=== PATIENT | female | born 1975 | race Caucasian/White ===

== ENCOUNTER 2018-10-25 21:44 | Emergency (ER) | payer OTHER, SELFPAY ==
[2018-10-25 22:23] VITALS: BP 131/82; PULSE 112; RESP 18; TEMP 38.7; O2SAT 96; BMI 73.4
--- NOTE | 2018-10-25 23:07 | ED.NAVMDI ---
HPI - Nausea/Vomiting/Diarrhea General Chief complaint: Nausea/Vomiting/Diarrhea Stated complaint: VOMITING, DIARRHEA Time Seen by Provider: 10/25/18 22:14 Source: patient Mode of arrival: ambulatory Limitations: no limitations History of Present Illness HPI Narrative: 43-year-old female here for evaluation of nausea vomiting and diarrhea. States has been going on for the past 24 hr. Has not done anything for it. Is having right-sided back pain. States she cannot keep anything down because the nausea. No blood in the diarrhea. No recent antibiotics for no recent travel. No fevers. 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) Integumentary/Breasts Denies rash Neurologic Denies behavioral changes Psychiatric Denies behavioral changes Hematologic/Lymphatic Denies easy bleeding and Denies easy bruising [facility] Medical History Fibromyalgia (Acute) Social History Smoking Status: Current every day smoker Social History Smoking Status: Current every day smoker Exam Initial Vital Signs Initial Vital Signs: Vital Signs Temperature 101.7 F H 10/25/18 22:23 Pulse Rate 112 H 10/25/18 22:23 Respiratory Rate 18 10/25/18 22:23 Blood Pressure 131/82 10/25/18 22:23 Pulse Oximetry 96 10/25/18 22:23 Const General: cooperative, comfortable, well developed, well groomed and No acute distress Orientation: alert, awake and oriented x3 Resp Effort & Inspection: normal respiratory effort Cardio Rate: regular rate Rhythm: regular rhythm GI Inspection: non-distended Palpation: soft, No firm and No tender Back/Spine/Pelvis Back: CVA tenderness right Skin Rashes: no rashes Neuro General: alert, awake and oriented x3 Extrem General: normal to inspection and capillary refill normal Psych Appearance: grossly normal and well kempt Course Orders Ordered: ED Orders 10/25/18 23:25 Complete Blood Count AUTO DIFF Stat Comprehensive Metabolic Panel Stat Lipase Stat 10/25/18 23:30 Urine Microscopic Stat Discontinued Medications Sodium Chloride (Normal Saline 0.9%) 1,000 mls @ 1,000 mls/hr IV BOLUS ONE Stop: 10/26/18 00:06 Last Infusion: 10/26/18 01:30 Dose: 0 mls/hr Admin: 10/25/18 23:50 Dose: 1,000 mls/hr Ketorolac Tromethamine (Toradol) 30 mg IV NOW ONE Stop: 10/25/18 23:45 Last Admin: 10/25/18 23:46 Dose: 30 mg Ondansetron HCl (Zofran) 4 mg IV NOW ONE Stop: 10/25/18 23:08 Last Admin: 10/25/18 23:46 Dose: 4 mg Ondansetron HCl (Zofran Odt Prepack) 1 bottle MISC SEEINSTR ONE Stop: 10/26/18 01:14 Last Admin: 10/26/18 01:36 Dose: 1 bottle Vital Signs - 8 hr 10/25/18 22:23 10/25/18 23:46 10/26/18 00:11 Temperature 101.7 F H 102 F H Pulse Rate 112 H 108 H Respiratory Rate 18 15 Blood Pressure 131/82 Blood Pressure [Left Arm] 124/76 Pulse Oximetry 96 98 10/26/18 01:37 Temperature 99.9 F H Pulse Rate 85 Respiratory Rate 18 Blood Pressure 119/55 L Blood Pressure [Left Arm] Pulse Oximetry 100 MDM - Nausea/Vomiting/Diarrhea Lab Data Attestation: I reviewed the patient's lab results. Result diagrams: 10/25/18 23:25 10/25/18 23:25 Lab Results 10/25/18 10/25/18 10/25/18 Range/Units 23:25 23:25 23:30 WBC 6.0 (4.5-11.0) X10^3/uL RBC 4.78 (4.0-5.2) X10^6/uL Hgb 12.1 (12.0-16.0) g/dL Hct 37.3 (36-46) % MCV 78.1 L (80-100) fL MCH 25.3 L (26-34) PG MCHC 32.4 (30-36) % RDW 15.8 H (11.6-14.8) % Plt Count 281 (150-400) X10^3/uL Neut % (Auto) 86.0 H (50-75) % Lymph % (Auto) 8.8 L (25-40) % [place] % (Auto) 4.6 (3-14) % Eos % (Auto) 0.4 L (2-4) % Baso % (Auto) 0.2 (0-2) % Neut # (Auto) 5200 (2726-3672) /uL Lymph # (Auto) 500 L (1539-1101) /uL [place] # (Auto) 300 (0-900) /uL Eos # (Auto) 0 (0-450) /uL Baso # (Auto) 0 (0-100) /uL Sodium 139 (137-145) mmol/L Potassium 3.6 (3.4-5.1) mmol/L Chloride 106 (98-107) mmol/L Carbon Dioxide 22 (22-32) mmol/L BUN 15 (7-17) mg/dL Creatinine 0.80 (0.52-1.04) mg/dL Estimated GFR > 60.0 (>60) mL/min BUN/Creatinine Ratio 18.8 (6-22) Glucose 101 H (70-100) mg/dL Calcium 9.1 (8.4-10.2) mg/dL Total Bilirubin 0.2 (0.2-1.3) mg/dL AST 22 (14-36) IU/L ALT 25 (9-52) IU/L Alkaline Phosphatase 65 (38-126) U/L Total Protein 7.4 (6.3-8.2) g/dL Albumin 4.2 (3.5-5.0) g/dL Globulin 3.2 (1.7-4.1) g/dL Albumin/Globulin Ratio 1.3 (1.0-2.8) Lipase 100 (23-300) U/L Urine RBC None seen (0-5/HPF) Urine WBC None seen (0-5/HPF) Ur Squamous Epith Cells 1-5 /hpf Urine Bacteria Few (2-10) H (None) Ur Culture Indicated? Cult not indicated Micro UA Comment . Urine Dip Bedside Urine Glucose Negative Bedside Urine Bilirubin - Negative Bedside Urine Ketone + 15 Urine Specific [place] 1.030 Bedside Urine Occult Blood - Negative Bedside Urine pH 5.5 Bedside Urine Protein +/- 15 Bedside Urine Urobilinogen - Negative Bedside Urine Nitrite - Negative Bedside Urine Leukocytes - Negative Esterase MDM Narrative Medical decision making narrative: Nontoxic appearing. Labs unremarkable. Urine unremarkable. No blood in the urine. Low suspicion for kidney stone. Low suspicion for pyelonephritis. I do suspect that the fever is secondary to the GI infection. She was given Zofran. Was able to tolerate a small amount of fluids afterwards. Will hold on any CT for now. No indication for antibiotics. Was given fluids. Instructed on the importance of taking small amounts of fluid over longer periods of time. Patient expressed understanding and agreement with plan. Discharge Plan Departure Patient Disposition: Home Clinical Impression: Nausea & vomiting Qualifiers: Vomiting type: unspecified Vomiting Intractability: non-intractable Qualified Code(s): R11.2 - Nausea with vomiting, unspecified Diarrhea Qualifiers: Diarrhea type: unspecified type Qualified Code(s): R19.7 - Diarrhea, unspecified Discharge Date/Time: 10/26/18 01:41 Interventions: ED Discharge Assessment Last Done: 10/26/18 01:37 Instructions: Diarrhea, DI for Nausea -- Adult, DI for Vomiting -- Adult Activity Restrictions/Additional Instructions: Recommend you take the nausea medication as directed. Take small amounts of fluid over longer periods of time. Contact your primary care doctor for a follow-up. Prescriptions: New ondansetron HCl [Zofran] 4 mg tablet 4 mg PO Q6-8H PRN (Reason: nausea and vomiting) Qty: 14 RF: 0 Referrals: Jose E Brice [Primary Care Provider] - Stand Alone Forms: Work Release Note
[2018-10-25 23:46] VITALS: TEMP 38.8
[2018-10-25] MEDS: KETOROLAC 60 MG/2 ML VIAL 30 MG IV (23:46)
[2018-10-25] MEDS: ONDANSETRON 4 MG/2 ML INJ IV (23:46)
[2018-10-25] MEDS: SODIUM CHLORIDE 0.9% 1,000 ML 1000 ML IV (23:50)
[2018-10-25 23:51] LABS: Add Manual Diff / Slide Review NO; Basophils Absolute Auto 0 /uL (0-100); Basophils Percent Auto 0.2 % (0-2); Eosinophils Absolute Auto 0 /uL (0-450); Eosinophils Percent Auto 0.4 % (2-4); Hematocrit 37.3 % (36-46); Hemoglobin 12.1 g/dL (12.0-16.0); Lymphocytes Absolute Auto 500 /uL (1100-4500); Lymphocytes Percent Auto 8.8 % (25-40); Mean Corpuscular HGB Conc 32.4 % (30-36); Mean Corpuscular Hemoglobin 25.3 PG (26-34); Mean Corpuscular Volume 78.1 fL (80-100); Monocytes Absolute Auto 300 /uL (0-900); Monocytes Percent Auto 4.6 % (3-14); Neutrophils Absolute Auto 5200 /uL (1500-7000); Platelet Count 281 X10^3/uL (150-400); Red Blood Cell Count 4.78 X10^6/uL (4.0-5.2); Red Cell Distribution Width 15.8 % (11.6-14.8)
[2018-10-25 23:57] LABS: Alanine Aminotransferase 25 IU/L (9-52); Albumin 4.2 g/dL (3.5-5.0); Albumin Globulin Ratio 1.3 (1.0-2.8); Alkaline Phosphatase 65 U/L (38-126); Aspartate Aminotransferase 22 IU/L (14-36); BUN Creatinine Ratio 18.8 (6-22); Bilirubin Total 0.2 mg/dL (0.2-1.3); Blood Urea Nitrogen 15 mg/dL (7-17); Calcium 9.1 mg/dL (8.4-10.2); Carbon Dioxide 22 mmol/L (22-32); Chloride 106 mmol/L (98-107); Estimated Glomerular Filt Rate > 60.0 mL/min (>60); Globulin 3.2 g/dL (1.7-4.1); Glucose 101 mg/dL (70-100); HEMOLYSIS < 15 (0-50); Lipase 100 U/L (23-300); Potassium 3.6 mmol/L (3.4-5.1); Sodium 139 mmol/L (137-145); Total Protein 7.4 g/dL (6.3-8.2)
[2018-10-25 23:58] LABS: RBC Urine None Seen (0-5/HPF); WBC Urine None Seen (0-5/HPF)
[2018-10-26] LABS: Squamous Epithelial Cell Urine 1-5 /HPF
[2018-10-26 00:01] LABS: Bacteria Urine Few (2-10); Culture Indicated Urine Cult Not Indicated
[2018-10-26 00:11] VITALS: BP 124/76; PULSE 108; RESP 15; O2SAT 98
[2018-10-26] MEDS: ONDANSETRON 4 MG ODT PREPACK 1 BOTTLE MISC (01:36)
[2018-10-26 01:37] VITALS: BP 119/55; PULSE 85; RESP 18; TEMP 37.7; O2SAT 100
== END 2018-10-26 01:41 | disposition home or self-care (01) ==
PROVIDERS: Emergency Provider Emergency Medicine; Family Provider Neuromusculoskeletal Medicine & OMM; PCP Neuromusculoskeletal Medicine & OMM
DX: R11.2 Nausea with vomiting, unspecified (principal); R19.7 Diarrhea, unspecified
CPT/HCPCS: 36591; 80053; 81003; 81015; 83690; 85025; 96361; 96374; 96375; 99283; 99284; J1885; J2405